=== PATIENT | male | born 1995 | race Caucasian/White ===

== ENCOUNTER 2018-02-25 17:01 | Emergency (ER) | payer BC, SELFPAY ==
[2018-02-25 17:02] VITALS: BP 145/91; PULSE 67; RESP 14; TEMP 36.1; O2SAT 100; BMI 29.6
--- NOTE | 2018-02-25 17:19 | ED.VISSUMM ---
- ER Visit Summary Date of Service: 02/25/18 Chief Complaint: Back pain History of Present Illness: The patient is a 22 M who is a [employer] student from [place]. 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 He denies any trauma otherwise. No fall or MVA. Reports that he has a dull constant pain is 10 out of 10 severity. His pain is 8 out of 10 with movement, bending, or twisting. He is taken Advil and Aleve without relief. No radiation to his legs. No numbness or weakness in his legs. No problems with his bowels or his bladder. No groin numbness. No red flags. Physical Examination: Vitals: Stable. Afebrile. General: A&O x 3. NAD. Cardiovascular exam: Regular rate and rhythm, no murmur, rub or gallop. Respiratory exam: Clear to auscultation bilaterally. No wheezes or stridor. Abdominal exam: Soft, nontender, nondistended, normal bowel sounds. No peritoneal signs. Back: Diffuse moderate tenderness to palpation over the lumbar spine and the paraspinous musculature in the lumbar region. No point tenderness. Negative straight leg bilaterally. 5/5 DF, PF, EHL bilaterally. Normal sensation to light touch throughout. Extremity: No clubbing, cyanosis, or edema. Emergency Department Course and Treatment: I had a prolonged discussion the patient about treatment options. He does not want to be placed on opiate-based medication. He is treated with Tylenol here. Treatment Plan: Patient be discharged with instructions to use Tylenol and naproxen. Moist heat. TENS unit. Follow-up Dr. Ruth in 3-5 days if not improving. Return to the emergency department for any worsening symptoms. Disposition: To home in improved and stable condition. Impression: 1. Lumbar strain. This note was generated with [employer] dictation software. It may contain incorrect words, spelling, and punctuation that were not noted in review of the chart prior to signing ED Disposition - Plan for ED Patient: Chief Complaint: Back Instructions: ED Sprain Strain Lumbar Referrals: Solo Ruth MD [STAFF PHYSICIAN] - 3-5 Days if not improving
[2018-02-25] MEDS: Acetaminophen 325 MG Tablet 1000 MG PO (17:25)
[2018-02-25 17:26] VITALS: PULSE 84; RESP 16; O2SAT 98
== END 2018-02-25 17:36 | disposition home or self-care (01) ==
LOC: ED 17:33
PROVIDERS: Emergency Provider Emergency Medicine
DX: S39.012A Strain of muscle, fascia and tendon of lower back, initial encounter (principal); X50.1XXA Overexertion from prolonged static or awkward postures, initial encounter; Y93.9 Activity, unspecified; Y92.9 Unspecified place or not applicable; Y99.9 Unspecified external cause status; J45.909 Unspecified asthma, uncomplicated
CPT/HCPCS: 99282